=== PATIENT | female | born 1965 | race Caucasian/White ===

== ENCOUNTER 2022-06-11 13:36 | Emergency (ER) | payer BC ==
[~2022-06-11] VITALS: Ht 154.9 cm; Wt 61.3 kg
[2022-06-11] MEDS ORDERED: ONDANSETRON ODT 4 MG TAB PO ONE (14:00)
[2022-06-11] MEDS ORDERED: MECLIZINE HCL 25 MG TAB PO ONE ×2 (14:00→21:00)
[2022-06-11] MEDS ORDERED: LACTATED RINGER'S 1,000 ML IV ONE (16:45)
[2022-06-11] MEDS ORDERED: diazePAM 5 MG TAB PO ONE (16:45)
[2022-06-11 17:25] LABS: Basophils # (auto) 0 10 ^3/uL (0-0.2); Basophils % (auto) 0.2 % (0.0-2.0); Eosinophils # (auto) 0 10 ^3/uL (0-0.8); Hematocrit 42.9 % (36.0-46.0); Hemoglobin 13.9 g/dL (12.2-16.2); Lymphocytes # (auto) 0.5 10 ^3/uL (0.4-5.4); Lymphocytes % (auto) 8.2 % (10.0-50.0); Mean Corpuscular Hemoglobin 29.7 pg (28.0-32.0); Mean Corpuscular Hgb Conc. 32.4 g/dL (32.0-36.0); Mean Corpuscular Volume 91.8 fL (80.0-100.0); Monocytes # (auto) 0.2 10 ^3/uL (0-1.3); Monocytes % (auto) 2.6 % (0.0-12.0); Neutrophils # (auto) 5.8 10 ^3/uL (1.6-8.6); Red Blood Cells 4.67 10^6/uL (4.0-5.20); Red Cell Distribution Width 14.2 % (11.8-14.3); White Blood Cell 6.6 10^3/uL (4.4-10.8)
[2022-06-11 17:42] LABS: Albumin 3.4 g/dL (3.4-5.0); Calcium 8.2 mg/dL (8.5-10.1); Potassium 4.4 mmol/L (3.5-5.1)
[2022-06-11 17:45] LABS: BUN/Creatinine Ratio 13.9; Bilirubin, Total 0.4 mg/dL (0.2-1.0); Total Protein 6.5 g/dL (6.4-8.2)
[2022-06-11] MEDS ORDERED: IOHEXOL 350 MG/ML 100ML IJ ONE (18:09)
[2022-06-11 20:00] VITALS: BP 138/77
[2022-06-11] MEDS ORDERED: ONDA-144 PO (20:19)
[2022-06-11] MEDS ORDERED: MECL12.514 PO (20:19)
[2022-06-11] MEDS ORDERED: ONDANSETRON HCL 4 MG/2 ML VIAL IV ONE (21:00)
== END 2022-06-11 20:46 | disposition home or self-care (01) ==
LOC: EDBD 13:36 → ER 13:40
DX: R42 Dizziness and giddiness (principal); I10 Essential (primary) hypertension
CPT/HCPCS: 36415; 70496; 70498; 80053; 84484; 85025; 96361; 96374; 99285; J2405; J7030; J8597; Q0162; Q9967